=== PATIENT | male | born 1935 | race Caucasian/White ===

== ENCOUNTER → 2021-11-16 | Outpatient (CLI) | payer OTHER, MEDICARE ==
[~2021-11-16] MED LIST: ALPHAGAN P10 ML OPHTHALMIC; ASACOL HD800 MG PO; ATORVASTATIN CA40 MG PO; CANASA1000 MG RECTAL; COSOPT OCUMETER10 M1 OP; ELIQUIS5 MG PO; FLOMAX0.4 MG PO; FLONASE 0.05%50 MCG NASAL; LOPRESSOR50 PO; OMEPRAZOLE 20 M20 M1 PO; XALATAN2.5 ML OPHTHALMIC
== END ==
LOC: SJCVC 10:36
PROVIDERS: ATTEND Internal Medicine
DX: R94.31 Abnormal electrocardiogram [ECG] [EKG] (principal); I49.1 Atrial premature depolarization; I95.1 Orthostatic hypotension; I10 Essential (primary) hypertension; I48.0 Paroxysmal atrial fibrillation; E78.5 Hyperlipidemia, unspecified; J44.9 Chronic obstructive pulmonary disease, unspecified; Z79.899 Other long term (current) drug therapy; Z87.891 Personal history of nicotine dependence; Z72.89 Other problems related to lifestyle